=== PATIENT | male | born 2000 | race Caucasian/White ===

== ENCOUNTER 2023-11-15 23:38 | Emergency (ER) | payer SELFPAY ==
[2023-11-15 23:39] VITALS: BP 144/71; PULSE 105; RESP 16; TEMP 36.6; O2SAT 98; BMI 23.9
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
[2023-11-16 01:51] VITALS: BP 118/76; PULSE 71; RESP 16; O2SAT 100
--- NOTE | 2023-11-16 01:52 | ED.RN ---
PT IS WAITING FOR A RIDE HOME. PT WAS TOLD HE [id number] STAY IN THE WAITING ROOM UNTIL HIS RIDE GETS HERE. PT WAS TALKING TO SOMEONE ON HIS PHONE WHEN HE WAS GIVEN THE NAME AND ADDRESS OF THE HOSPITAL
== END 2023-11-16 01:53 | disposition home or self-care (01) ==
PROVIDERS: Emergency Provider Emergency Medicine; Visit Provider Emergency Medicine
DX: S09.90XA Unspecified injury of head, initial encounter (principal); Y92.410 Unspecified street and highway as the place of occurrence of the external cause; V58.5XXA Driver of pick-up truck or van injured in noncollision transport accident in traffic accident, initial encounter
CPT/HCPCS: 70450; 99282